=== PATIENT | female | born 2000 | race American Indian/Alaskan Native ===

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

== ENCOUNTER 2020-11-15 12:52 | Emergency (ER) | payer MEDICAID ==
[2020-11-15] MEDS ORDERED: ACETAMINOPHEN 325 MG TAB PO ONE (13:12)
--- NOTE | 2020-11-15 13:15 | Emergency Department Report ---
ED HPI - General Chief complaint: Vaginal Bleeding Stated complaint: 4WKS PREG/BLEEDING Time Seen by Provider: 11/15/20 13:11 Source: patient Mode of arrival: Ambulatory Limitations: No Limitations - History of Present Illness Initial comments: pt is a 20 yo female who presents to the ED with c/o vaginal bleeding that began yesterday. she states she has used 2 pads today. she states she has noticed small clots. she states today she began having suprapubic abdominal cramping. she states her [facility]ALTH CENTER ASSOC[facility]ATE is at [facility] and she was advised she is 4 weeks 5 days on 11/13/2020. she denies any fever, n/v/d, abnormal vaginal discharge, urinary symptoms. no pmhx. no allergies to meds. LNMP 10/03/2020. /P:1/A:0 - Related Data Previous Rx's Medication Instructions Recorded Last Taken Type Nitrofurantoin [place]/M-Cryst 100 mg PO Q12HR #14 capsule 05/17/17 Unknown Rx [Macrobid CAP] Vit-Fe Fumar-FA [ 1 tab PO QDAY #30 tablet 05/17/17 Unknown Rx Vitamin] Allergies Allergy/AdvReac Type Severity Reaction Status Date / Time No Known Allergies Allergy Verified 11/15/20 13:07 ED Review of Systems ROS: Stated complaint: 4WKS PREG/BLEEDING Other details as noted in HPI Comment: All other systems reviewed and negative ED Past Medical Hx - Past Medical History Previous Medical History?: No - Surgical History Past Surgical History?: No - Social History Smoking Status: Former Smoker Substance Use Type: None - Medications Home Medications: Home Medications Medication Instructions Recorded Confirmed Last Taken Type Nitrofurantoin [place]/M-Cryst 100 mg PO Q12HR #14 capsule 05/17/17 Unknown Rx [Macrobid CAP] Vit-Fe Fumar-FA [ 1 tab PO QDAY #30 tablet 05/17/17 Unknown Rx Vitamin] ED Physical Exam - General Limitations: No Limitations General appearance: alert, in no apparent distress - Head Head exam: Present: atraumatic, normocephalic - Eye Eye exam: Present: normal appearance - ENT ENT exam: Present: mucous membranes moist - Respiratory Respiratory exam: Present: normal lung sounds bilaterally. Absent: respiratory distress, wheezes, rales, rhonchi, stridor, chest wall tenderness, accessory muscle use, decreased breath sounds, prolonged expiratory - Cardiovascular Cardiovascular Exam: Present: regular rate, normal rhythm, normal heart sounds. Absent: systolic murmur, diastolic murmur, rubs, gallop - GI/Abdominal GI/Abdominal exam: Present: soft, normal bowel sounds. Absent: distended, tenderness, guarding, rebound, rigid - Neurological Exam Neurological exam: Present: alert, oriented X3 - Psychiatric Psychiatric exam: Present: normal affect, normal mood - Skin Skin exam: Present: warm, dry, intact ED Course Vital Signs 11/15/20 11/15/20 13:08 15:08 Temperature 98.2 F 98.3 F Pulse Rate 112 H 80 Respiratory 20 16 Rate Blood Pressure 134/32 118/58 [Right] O2 Sat by Pulse 97 100 Oximetry ED Medical Decision Making - Lab Data Result diagrams: 11/15/20 13:15 11/15/20 13:15 Lab Results 11/15/20 11/15/20 11/15/20 Range/Units 13:15 13:15 13:15 WBC 6.7 (4.5-11.0) K/mm3 RBC 4.62 (3.65-5.03) M/mm3 Hgb 13.8 (10.1-14.3) gm/dl Hct 40.7 (30.3-42.9) % MCV 88 (79-97) fl MCH 30 (28-32) pg MCHC 34 (30-34) % RDW 13.4 (13.2-15.2) % Plt Count 308 (140-440) K/mm3 Lymph % (Auto) 49.1 H (13.4-35.0) % [place] % (Auto) 9.6 H (0.0-7.3) % Eos % (Auto) 1.2 (0.0-4.3) % Baso % (Auto) 0.5 (0.0-1.8) % Lymph # (Auto) 3.3 (1.2-5.4) K/mm3 [place] # (Auto) 0.6 (0.0-0.8) K/mm3 Eos # (Auto) 0.1 (0.0-0.4) K/mm3 Baso # (Auto) 0.0 (0.0-0.1) K/mm3 Seg Neutrophils % 39.6 L (40.0-70.0) % Seg Neutrophils # 2.7 (1.8-7.7) K/mm3 Sodium 142 (137-145) mmol/L Potassium 3.9 (3.6-5.0) mmol/L Chloride 104.1 (98-107) mmol/L Carbon Dioxide 26 (22-30) mmol/L Anion Gap 16 mmol/L BUN 8 (7-17) mg/dL Creatinine 0.7 (0.6-1.2) mg/dL Estimated GFR > 60 ml/min BUN/Creatinine Ratio 11 % Glucose 77 (65-100) mg/dL Calcium 9.4 (8.4-10.2) mg/dL Total Bilirubin 0.20 (0.1-1.2) mg/dL AST 16 (5-40) units/L ALT 9 (7-56) units/L Alkaline Phosphatase 59 (35-129) units/L Total Protein 7.9 (6.3-8.2) g/dL Albumin 4.9 (3.9-5) g/dL Albumin/Globulin Ratio 1.6 % HCG, Quant 2546 H (0-4) mIU/mL Urine Color (Yellow) Urine Turbidity (Clear) Urine pH (5.0-7.0) Ur Specific [place] (1.003-1.030) Urine Protein (Negative) mg/dL Urine Glucose (UA) (Negative) mg/dL Urine Ketones (Negative) mg/dL Urine Blood (Negative) Urine Nitrite (Negative) Urine Bilirubin (Negative) Urine Urobilinogen (<2.0) mg/dL Ur Leukocyte Esterase (Negative) Urine WBC (Auto) (0.0-6.0) /HPF Urine RBC (Auto) (0.0-6.0) /HPF /03/02 Range/Units Unknown WBC (4.5-11.0) K/mm3 RBC (3.65-5.03) M/mm3 Hgb (10.1-14.3) gm/dl Hct (30.3-42.9) % MCV (79-97) fl MCH (28-32) pg MCHC (30-34) % RDW (13.2-15.2) % Plt Count (140-440) K/mm3 Lymph % (Auto) (13.4-35.0) % [place] % (Auto) (0.0-7.3) % Eos % (Auto) (0.0-4.3) % Baso % (Auto) (0.0-1.8) % Lymph # (Auto) (1.2-5.4) K/mm3 [place] # (Auto) (0.0-0.8) K/mm3 Eos # (Auto) (0.0-0.4) K/mm3 Baso # (Auto) (0.0-0.1) K/mm3 Seg Neutrophils % (40.0-70.0) % Seg Neutrophils # (1.8-7.7) K/mm3 Sodium (137-145) mmol/L Potassium (3.6-5.0) mmol/L Chloride (98-107) mmol/L Carbon Dioxide (22-30) mmol/L Anion Gap mmol/L BUN (7-17) mg/dL Creatinine (0.6-1.2) mg/dL Estimated GFR ml/min BUN/Creatinine Ratio % Glucose (65-100) mg/dL Calcium (8.4-10.2) mg/dL Total Bilirubin (0.1-1.2) mg/dL AST (5-40) units/L ALT (7-56) units/L Alkaline Phosphatase (35-129) units/L Total Protein (6.3-8.2) g/dL Albumin (3.9-5) g/dL Albumin/Globulin Ratio % HCG, Quant (0-4) mIU/mL Urine Color Red (Yellow) Urine Turbidity Cloudy (Clear) Urine pH 6.0 (5.0-7.0) Ur Specific [place] 1.025 (1.003-1.030) Urine Protein 100 mg/dl (Negative) mg/dL Urine Glucose (UA) Neg (Negative) mg/dL Urine Ketones Neg (Negative) mg/dL Urine Blood Lg (Negative) Urine Nitrite Neg (Negative) Urine Bilirubin Neg (Negative) Urine Urobilinogen < 2.0 (<2.0) mg/dL Ur Leukocyte Esterase Neg (Negative) Urine WBC (Auto) 22.0 H (0.0-6.0) /HPF Urine RBC (Auto) > 182.0 (0.0-6.0) /HPF Vital Signs 11/15/20 11/15/20 13:08 15:08 Temperature 98.2 F 98.3 F Pulse Rate 112 H 80 Respiratory 20 16 Rate Blood Pressure 134/32 118/58 [Right] O2 Sat by Pulse 97 100 Oximetry - Radiology Data Radiology results: report reviewed Ordering Physician: BHAVNA CHERY Date of Service: 11/15/20 Procedure(s): US OB transvaginal Accession Number(s): [id number] cc: BHAVNA CHERY ULTRASOUND OBSTETRIC INDICATION: , abd pain, vaginal bleeding since this morning. TECHNIQUE: Transabdominal and Transvaginal. COMPARISON: None available. FINDINGS: GESTATIONAL SAC: None seen. YOLK SAC: None seen. EMBRYO/FETUS: None seen. UTERUS: No significant abnormality. ADNEXA: No significant abnormality. FREE FLUID: None. ADDITIONAL FINDINGS: None. IMPRESSION: No sonographic evidence of an intrauterine or ectopic or other acute abnormality. Signer Name: Diego Bourne MD Signed: 11/15/2020 2:45 PM Workstation Name: [id number] Transcribed By: [place] Dictated By: Diego Bourne MD Electronically Authenticated By: Diego Bourne MD Signed Date/Time: 11/15/201444 DD/ 40 TD/TT: - Medical Decision Making pt is a 20 yo female who presents to the ED with c/o vaginal bleeding that began yesterday. she states she has used 2 pads today. she states she has noticed small clots. she states today she began having suprapubic abdominal cramping. she states her [facility] C[facility] ASSOC[facility]ATE is at [facility] and she was advised she is 4 weeks 5 days on 11/13/2020. she denies any fever, n/v/d, abnormal vaginal discharge, ur inary symptoms. no pmhx. no allergies to meds. LNMP 10/03/2020. /P:1/A:0. on exam: no abd ttp, no guarding, no rebound, no rigidity. initial vitals with elevated HR which improved upon repeat. hcg quant is 2546. otherwise labs are normal. upon chart review pt is Rh+. UA shows many WBCs, there is a small amount of WBCs, negative leukocyte esterase, negative nitrites. US OB: No sonographic evidence of an intrauterine or ectopic or other acute abnormality. Findings are most consistent with spontaneous . Discussed all results with patient and answered questions. Discussed return precautions. Discussed the importance of HEALTH CENTER ASSOCIATE follow-up. Advised patient please increase your water intake. make take tylenol for any discomfort. follow up with the HEALTH CENTER ASSOCIATE in the next 2-3 days. return to the emergency room for any new or worsening symptoms. Critical care attestation.: If time is entered above; I have spent that time in minutes in the direct care of this critically ill patient, excluding procedure time. ED Disposition Clinical Impression: Spontaneous Disposition: DC-01 TO HOME OR SELFCARE Is pt being admited?: No Does the pt Need Aspirin: No Condition: Stable Instructions: Miscarriage, [id number] Additional Instructions: please increase your water intake. make take tylenol for any discomfort. follow up with the HEALTH CENTER ASSOCIATE in the next 2-3 days. return to the emergency room for any new or worsening symptoms. Referrals: [facility] [Provider Group] - 2-3 Days Time of Disposition: 15:13 Print Language: LATVIAN
[2020-11-15 13:54] LABS: Bilirubin,Urine NEG (Negative); Blood,Urine LG (Negative); Color,Urine Red (Yellow); Urobilinogen,Urine < 2.0 mg/dL (<2.0)
[2020-11-15 14:05] LABS: Alanine Aminotransferase 9 units/L (7-56); Albumin 4.9 g/dL (3.9-5); Blood Urea Nitrogen 8 mg/dL (7-17); Calcium 9.4 mg/dL (8.4-10.2); Hemolysis Index 5
[2020-11-15 14:06] LABS: BUN/Creatinine Ratio 11
[2020-11-15 14:11] LABS: RBC,Urine > 182.0 /HPF (0.0-6.0)
[2020-11-15 14:32] LABS: Basophils % (Auto) 0.5 % (0.0-1.8); Eosinophils # (Auto) 0.1 K/mm3 (0.0-0.4); Eosinophils % (Auto) 1.2 % (0.0-4.3); Hematocrit 40.7 % (30.3-42.9); Hemoglobin 13.8 gm/dl (10.1-14.3); Lymphocytes # (Auto) 3.3 K/mm3 (1.2-5.4); Lymphocytes % (Auto) 49.1 % (13.4-35.0); Mean Corpuscular HGB Conc 34 % (30-34); Mean Corpuscular Volume 88 fl (79-97); Monocytes # (Auto) 0.6 K/mm3 (0.0-0.8); Monocytes % (Auto) 9.6 % (0.0-7.3); Platelet Count 308 K/mm3 (140-440); Red Blood Count 4.62 M/mm3 (3.65-5.03); Red Cell Distribution Width 13.4 % (13.2-15.2)
--- NOTE | 2020-11-15 14:49 | Ultrasound Report ---
ULTRASOUND OBSTETRIC INDICATION: , abd pain, vaginal bleeding since this morning. TECHNIQUE: Transabdominal and Transvaginal. COMPARISON: None available. FINDINGS: GESTATIONAL SAC: None seen. YOLK SAC: None seen. EMBRYO/FETUS: None seen. UTERUS: No significant abnormality. ADNEXA: No significant abnormality. FREE FLUID: None. ADDITIONAL FINDINGS: None. IMPRESSION: No sonographic evidence of an intrauterine or ectopic or other acute abnormality. Signer Name: Diego Bourne MD Signed: 11/15/2020 2:45 PM Workstation Name: [id number]
[2020-11-15 15:10] VITALS: BP 118/58
== END 2020-11-15 15:20 | disposition home or self-care (01) ==
LOC: ED 12:52
DX: O03.9 Complete or unspecified spontaneous abortion without complication (principal); Z3A.01 Less than 8 weeks gestation of pregnancy; Z87.891 Personal history of nicotine dependence; Z79.899 Other long term (current) drug therapy
CPT/HCPCS: 36415; 76801; 76817; 80053; 81001; 84702; 85025; 87086

== ENCOUNTER 2022-06-05 03:46 | Inpatient (IN) | payer MEDICAID ==
[2022-06-05] MEDS ORDERED: ACETAMINOPHEN 325 MG TAB PO PRN ×2 (04:14→10:03)
[2022-06-05] MEDS ORDERED: OXYTOCIN 10 UNIT/1 ML INJ IM PRN (04:14)
[2022-06-05] MEDS ORDERED: miSOPROStol 200 MCG TAB PR PRN (04:14)
[2022-06-05] MEDS ORDERED: AMPICILLIN/NS 2 GM/100 ML 2 GM/100 ML BAG IV ONE (04:14)
[2022-06-05] MEDS ORDERED: BUTORPHANOL 2 MG/1 ML INJ IV PRN ×2 (04:14)
[2022-06-05] MEDS ORDERED: CARBOPROST TROMETHAMINE 250 MCG/1 ML INJ IM PRN (04:14)
[2022-06-05] MEDS ORDERED: LOPERAMIDE 2 MG CAP PO PRN (04:14)
[2022-06-05] MEDS ORDERED: LIDOCAINE (2%) 20 MG/1 ML VIAL 20 ML MDV INFILTRATI ONE (04:14)
[2022-06-05] MEDS ORDERED: ePHEDrine SULFATE 50 MG/1 ML INJ IV PRN ×2 (04:14→08:00)
[2022-06-05] MEDS ORDERED: MINERAL OIL 30 ML ORAL LIQD PO PRN (04:14)
[2022-06-05] MEDS ORDERED: METHYLERGONOVINE MALEATE 0.2 MG/ML VIAL IM PRN (04:14)
[2022-06-05] MEDS ORDERED: TERBUTALINE 1 MG/1 ML INJ SUB-Q PRN (04:14)
--- NOTE | 2022-06-05 04:22 | History and Physical Report ---
History of Present Illness Date of examination: 06/05/22 Date of admission: 06/05/2022 Chief complaint: C/O contractions History of present illness: 21 Y/O now 38.6 weeks with care at [facility] presents to labor and delivery in active labor. GBS positive. Past History Past Medical History: no pertinent history Past Surgical History: no surgical history Family/Genetic History: none Social history: no significant social history - Obstetrical History Expected Date of Delivery: 06/13/22 Actual Gestation: 38 Week(s) 6 Day(s) : 4 Number of Living Children: 1 Medications and Allergies Allergies Allergy/AdvReac Type Severity Reaction Status Date / Time No Known Allergies Allergy Verified 11/15/20 13:07 Home Medications Medication Instructions Recorded Confirmed Last Taken Type Nitrofurantoin [place]/M-Cryst 100 mg PO Q12HR #14 capsule 05/17/17 Unknown Rx [Macrobid CAP] Vit-Fe Fumar-FA [ 1 tab PO QDAY #30 tablet 05/17/17 Unknown Rx Vitamin] Active Meds: Active Medications Acetaminophen (Acetaminophen 325 Mg Tab) 650 mg PO Q4H PRN PRN Reason: Pain, Mild (1-3) Butorphanol Tartrate (Butorphanol 2 Mg/1 Ml Inj) 1 mg IV Q2H PRN PRN Reason: Pain, Moderate(4-6) LABOR PAIN Butorphanol Tartrate (Butorphanol 2 Mg/1 Ml Inj) 2 mg IV Q2H PRN PRN Reason: Pain , Severe (7-10) Carboprost Tromethamine (Carboprost Tromethamine 250 Mcg/1 Ml Inj) 250 mcg IM ONCE PRN PRN Reason: Uterine Bleeding Ephedrine Sulfate (Ephedrine Sulfate 50 Mg/1 Ml Inj) 10 mg IV Q2M PRN PRN Reason: Hypotension Oxytocin/Sodium Chloride (Pitocin/Ns 30 Unit/500ml) 30 units in 500 mls @ 2 mls/hr IV TITR JACKI; Protocol Lactated Ringer's (Lactated Ringers) 1,000 mls @ 125 mls/hr IV DIRECT JACKI Oxytocin/Sodium Chloride (Pitocin/Ns 30 Unit/500ml) 30 units in 500 mls @ 40 mls/hr IV TITR JACKI; Protocol Ampicillin Sodium (Ampicillin/Ns 1 Gm/50 Ml) 1 gm in 50 mls @ 100 mls/hr IV Q4H JACKI; Protocol Ampicillin Sodium (Ampicillin/Ns 2 Gm/100 Ml) 2 gm in 100 mls @ 100 mls/hr IV ONCE ONE; Protocol Stop: 06/05/22 05:13 Lidocaine (Lidocaine (2%) 20 Mg/1 Ml Vial 20 Ml Mdv) 20 ml INFILTRATI ONCE ONE Stop: 06/05/22 04:15 Loperamide HCl (Loperamide 2 Mg Cap) 2 mg PO ONCE PRN PRN Reason: give with Hemabate Methylergonovine Maleate (Methylergonovine Maleate 0.2 Mg/Ml Vial) 0.2 mg IM ONCE PRN PRN Reason: Uterine Bleeding Mineral Oil (Mineral Oil 30 Ml Oral Liqd) 30 ml PO QHS PRN PRN Reason: Constipation Misoprostol (Misoprostol 200 Mcg Tab) 800 mcg MS ONCE PRN PRN Reason: Uterine Bleeding Oxytocin (Oxytocin 10 Unit/1 Ml Inj) 10 unit IM ONCE PRN PRN Reason: Uterine Bleeding Terbutaline Sulfate (Terbutaline 1 Mg/1 Ml Inj) 0.25 mg SUB-Q ONCE PRN PRN Reason: Hyperstimulation/Hypertonicity Review of Systems All systems: negative - Vital Signs Vital signs: Vital Signs Pulse BP Pulse Ox 68 118/72 100 06/05/22 04:05 06/05/22 04:05 06/05/22 04:05 Temp Pulse Resp BP Pulse Ox 77 118/72 100 06/05/22 04:15 06/05/22 04:05 06/05/22 04:15 - Physical Exam Breasts: Positive: deferred Cardiovascular: Regular rate Lungs: Positive: Clear to auscultation Abdomen: Positive: soft Genitourinary (Female): Positive: normal external genitalia Vagina: Positive: normal moisture Uterus: Positive: enlarged Adnexa: both: normal Extremities: Positive: normal Deep Tendon Reflex Grade: Normal +2 - Obstetrical FHR: category 1 Uterine Contraction Monitor Mode: External Cervical Dilatation: 5 Cervical Effacement Percentage: 80 station: -1 Uterine Contraction Pattern: Irregular Uterine Contraction Intensity: Moderate Results All other labs normal. Assessment and Plan A: 38.6 weeks active labor P: Expect
[2022-06-05 04:46] LABS: Hematocrit 32.1 % (30.3-42.9); Hemoglobin 10.9 gm/dl (10.1-14.3); Mean Corpuscular HGB Conc 34 % (30-34); Mean Corpuscular Volume 84 fl (79-97); Platelet Count 218 K/mm3 (140-440); Red Blood Count 3.81 M/mm3 (3.65-5.03)
[2022-06-05] MEDS ORDERED: OXYTOCIN DRIP 30 UNITS/500 ML BAG IV SCH ×2 (05:00)
[2022-06-05] MEDS: LACTATED RINGERS 1,000 ML IV SCH ×3 (05:07→08:14)
--- NOTE | 2022-06-05 07:42 | Anesthesia Consultation ---
Anesthesia Consult and Med Hx Date of service: 06/05/22 - Airway Anesthetic Teeth Evaluation: Poor ROM Head & Neck: Adequate Mental/Hyoid Distance: Adequate Mallampati Class: Class II Intubation Access Assessment: Probably Good - Pulmonary Exam CTA: Yes - Cardiac Exam Cardiac Exam: RRR - Pre-Operative Health Status ASA Pre-Surgery Classification: ASA2 Proposed Anesthetic Plan: Epidural - Pulmonary Hx Smoking: No Hx Asthma: No - Cardiovascular System Hx Hypertension: No - Central Nervous System Hx Seizures: No Hx Psychiatric Problems: No - Endocrine Hx Renal Disease: No Hx Hypothyroidism: No Hx Hyperthyroidism: No - Hematic Hx Anemia: No Hx Sickle Cell Disease: No - Other Systems Hx Alcohol Use: No Hx Obesity: No
[2022-06-05] MEDS ORDERED: fentaNYL-BUPIV 2 MCG/ML-0.125% 200 MCG/100 ML BAG EPIDURAL SCH (08:00)
[2022-06-05] MEDS ORDERED: NALOXONE 0.4 MG/1 ML INJ IV PRN (08:00)
--- NOTE | 2022-06-05 08:10 | Event Note ---
Date: 06/05/22 S: Feeling better O: VE 9/C/0- arom clear, CAT I tracing A: 38.6 weeks active labor P: Expect
[2022-06-05] MEDS ORDERED: AMPICILLIN/NS 1 GM/50 ML 1 GM/50 ML BAG IV SCH (09:00)
--- NOTE | 2022-06-05 10:02 | Procedure Note ---
OB Delivery Note - Delivery Date of Delivery: 06/05/22 Surgeon: SANIYA YAP Estimated blood loss: 200cc - Vaginal Delivery presentation: vertex Delivery position: OA Intrapartum events: none Delivery induction: none Delivery augmentation: rupture of membranes Delivery monitor: external FHT, external uterine Route of delivery: Delivery placenta: spontaneous Delivery cord: nuchal cord (clamped and cut) Delivery laceration: other (left labial) Delivery repair: vicryl Anesthesia: epidural Delivery comments: Prior to delivery a red elham catheter was inserted and the bladder was drained of 300cc of yellow urine. She then pushed and delivered a female 6# 15 over intact perineum. The nuchal cord was clamped and cut prior to delivery. Baby was passed to the warmer for stimulation. Placenta delivered 3VCI. Apgars 8/9. QBL 200cc. Left labial laceration repaired with 3-0 vicryl. Mother and baby doing well. - A at 1 minute: 8 at 5 minutes: 9 Gender: Female (6#-15oz)
[2022-06-05] MEDS ORDERED: oxyCODONE /ACETAMINOPHEN 5-325MG TAB PO PRN (10:03)
[2022-06-05] MEDS ORDERED: WITCH HAZEL/ GLYCERIN PAD TP PRN (10:03)
[2022-06-05] MEDS ORDERED: MAGNESIUM HYDROXIDE (MOM) ORAL LIQD UDC PO PRN (10:03)
[2022-06-05] MEDS ORDERED: diphenhydrAMINE 25 MG CAP PO PRN (10:03)
[2022-06-05] MEDS ORDERED: LANOLIN/ZINC/DIMETHICONE (LANSINOH) 7 GM TP PRN (10:03)
[2022-06-06 00:44] LABS: Hematocrit 30.7 % (30.3-42.9); Hemoglobin 10.1 gm/dl (10.1-14.3)
--- NOTE | 2022-06-06 10:43 | Progress Note ---
Labor Epidural - Labor Epidural Start Time: 07:19 Stop Time: 07:46 Performed by:: LEMUEL MCPHERSON Procedure: Patient is requesting a laboring epidural for laboring pain. Patient IDed, H&P reviewed, all questions and concerns were answered, and consent was signed. Timeout was performed at bedside. Patient in sitting position. Sterile prep and drape was performed. [3] ml of 1% lidocaine skin wheal at L[3]- L [4]. 17- gauge Tuohy epidural needle was advanced to loss of resistance with saline technique 6cm. Single dural perforation via 25 gauge spinal needle placed through the shaft of Epidural needle. Positive CSF via spinal needle. Negative CSF negative blood via Epidural needle. Epidural catheter advanced to [10] centimeters. [NEGATIVE] Aspiration [NEGATIVE] test dose. Negative Paresthesia. Sterile dressing applied. Patient tolerated procedure.
--- NOTE | 2022-06-06 10:43 | Post Anesthesia Evaluation ---
- Post Anesthesia Evaluation Patient Participated: Yes Airway Patent: Yes Stable Respiratory Function: Yes Nausea/Vomiting: No Temp > 96.8F: Yes Pain Manageable: Yes Adequeate Hydration: Yes Anesthesia Complications: No Block Receding Appropriately: Yes Patient on Ventilator: No
--- NOTE | 2022-06-06 13:38 | Progress Note ---
Assessment and Plan A: PP Day #1 Stable P: Follow Routine Orders D/C home today per patient request RTo in 6 Weeks Subjective - Subjective Date of service: 06/06/22 Patient reports: appetite normal, voiding normally, pain well controlled, flatus , bowel movement, ambulating normally : doing well Objective - Vital Signs Latest vital signs: Vital Signs Temp Pulse Resp BP Pulse Ox Pulse Ox Pulse Ox 06/06/22 08:30 97.6 F 67 18 112/78 100 06/06/22 08:01 100 100 06/06/22 04:09 98.2 F 69 20 119/80 06/06/22 00:43 98.0 F 20 111/67 99 06/05/22 21:56 98.2 F 84 16 109/68 99 06/05/22 19:40 100 100 06/05/22 18:39 85 107/70 06/05/22 16:00 98.0 F Intake and Output 06/05/22 06/06/22 06/06/22 22:59 06:59 14:59 Intake Total 600 Output Total 200 Balance 400 Intake: Intake, Free Water 600 Output: Urine 200 Void 200 Other: Total, Output Amount 200 # Voids Void 2 - Exam Breasts: Present: normal Cardiovascular: Present: Regular rate Lungs: Present: Clear to auscultation, Normal air movement Abdomen: Present: normal appearance, soft, normal bowel sounds Uterus: Present: normal, firm, fundal height below umbilicus Extremities: Present: normal
--- NOTE | 2022-06-06 13:42 | Discharge Summary ---
Providers - Providers Date of Admission: 06/05/22 10:03 Date of discharge: 06/06/22 Attending physician: RUBINA OROZCO MD Primary care physician: RUBINA OROZCO MD Hospitalization Reason for admission: active labor Delivery: Episiotomy: none Laceration: none Other procedures: none complications: none Discharge diagnosis: IUP at term delivered [place] baby: female Condition at discharge: Good Disposition: 01 HOME / SELF CARE / HOMELESS Plan - Provider Discharge Summary Activity: routine, no sex for 6 weeks, no heavy lifting 4 weeks, no strenuous exercise Diet: routine Instructions: routine Additional instructions: [] Smoking cessation referral if applicable(refer to patient education folder for contact #) [] Refer to [facility]'s [facility] Booklet Call your doctor immediately for: * Fever > 100.5 * Heavy vaginal bleeding ( >1 pad per hour) * Severe persistent headache * Shortness of breath * Reddened, hot, painful area to leg or breast * Drainage or odor from incision. * Keep incision clean and dry at all times and follow doctor's instructions regarding bathing/showering - Follow up plan Follow up: RUBINA OROZCO MD [Primary Care Provider] - 6 Weeks
[2022-06-06 18:29] VITALS: BP 107/74
== END 2022-06-06 18:19 | disposition home or self-care (01) | DRG 775 ==
LOC: TRG 03:46 → APU 03:56 → LD 04:48 → TRG 10:09 → OB 22:29
PROVIDERS: ADMIT Obstetrics & Gynecology Gynecology; ATTEND Obstetrics & Gynecology Gynecology
PROC: 10E0XZZ Delivery of Products of Conception, External Approach (ICD-10-PCS; principal; 2022-06-05)
PROC: 10907ZC Drainage of Amniotic Fluid, Therapeutic from Products of Conception, Via Natural or Artificial Opening (ICD-10-PCS; 2022-06-05)
PROC: 3E0R3BZ Introduction of Anesthetic Agent into Spinal Canal, Percutaneous Approach (ICD-10-PCS; 2022-06-05)
PROC: 00HU33Z Insertion of Infusion Device into Spinal Canal, Percutaneous Approach (ICD-10-PCS; 2022-06-05)
PROC: 0UQMXZZ Repair Vulva, External Approach (ICD-10-PCS; 2022-06-05)
DX: O99.824 Streptococcus B carrier state complicating childbirth (principal); O69.81X0 Labor and delivery complicated by cord around neck, without compression, not applicable or unspecified; Z37.0 Single live birth; Z20.822 Contact with and (suspected) exposure to COVID-19; Z3A.38 38 weeks gestation of pregnancy; O70.0 First degree perineal laceration during delivery; Z88.8 Allergy status to other drugs, medicaments and biological substances
CPT/HCPCS: 36415; 84112; 85014; 85018; 85027; 86850; 86900; 86901; G0378; J3490; J0290; J7120; U0003